=== PATIENT | male | born 1970 | race Caucasian/White ===

== ENCOUNTER 2024-02-28 04:01 | Day surgery (SDC) | payer BC, SELFPAY ==
[2024-02-19 10:01] VITALS: BMI 34.7
--- NOTE | 2024-02-19 10:11 | PC.NURSE ---
Report to the Outpatient Waiting Room, entrance under the green pavilion located off [facility], at time _0900_ on date _[id number]_. Planned Procedure Time: _1100_. Time changes happen often and if your time is changed the preop area will call you the afternoon before. - You and your visitor will be asked to self-screen and do not enter if you have any COVID symptoms. - A mask is optional within the hospital at this time. Patients may have clear liquids (water, carbonated beverages, clear teas, apple juice) until 3 hours prior to surgery with a maximum of 20 ounces. - No food from midnight until time of surgery Take the following medications with a SIP of water the morning of surgery: ___Metoprolol DO NOT STOP ANY OF YOUR OTHER PRESCRIPTION MEDICATIONS PRIOR TO SURGERY ?EXCEPT THE FOLLOWING Medications to discontinue per physician __Benny says he was told by Dr Kim's office to stop Aspirin and Prasugrel 7 days before surgery. Date to take last dose Please no make-up, nail british, hairspray, perfume, deodorant, or body powder the day of surgery. No jewelry (including any body piercings) or valuables the day of surgery, leave them at home. Please take a shower or bath the night before, or the morning of, surgery with an antibacterial soap. Wear comfortable, loose fitting clothing. - Jewelry must be removed prior to entering the operating room. Rings and piercings that are not removed may be cut off. - The hospital will not accept responsibility for valuables. - Please leave all valuables, including medications, at home the day of surgery. If you are going home after surgery, a licensed garbage truck driver must drive you home. - NO public transportation without another adult if you receive anesthesia. - We recommend that an adult stay with you for 24 hours following discharge. - We also recommend that you do not drive, make important decision, drink alcoholic beverages, or take any drugs that were not prescribed by your health care provider for at least 24 hours after your discharge time. Follow any additional instructions given to you from your surgeon. If you or anyone in your household have experienced Covid symptoms in the past week, please notify your surgeon or the nurse liaison at the phone number below for possible testing. Telephone instructions given to _Bill_and asked if any additional questions and then verbalized understanding. Patient advised to call surgeon office or pre surgery nurse liaison [phone] if any additional questions.
[2024-02-28] VITALS (9 sets, daily range): BP systolic 124–172; BP diastolic 85–108; PULSE 57–69; RESP 14–22; TEMP 36.7–36.8; O2SAT 93–98
--- NOTE | 2024-02-28 06:15 | WPDHPUPDATE1 ---
History and Physical Update Update Date/Time: 02/28/24 06:15 History and Physical has been reviewed, including an updated exam of the patient. There are NO changes in the patient's condition. Risks, benefits, and alternatives have been discussed and questions answered. Patient agrees to proceed with procedure.
[2024-02-28] MEDS: LACTATED RINGERS 1,000 ML 30 ML IV CONT ×2 (09:25→10:45)
--- NOTE | 2024-02-28 09:34 | WPDANESEPPF ---
Anes - Initial Pre Proc Eval Procedure: Operation Date: 02/28/24 11:00 Proposed Procedures p Cystoscopy, Holmium Laser Lithotripsy Bladder Stones - Luis Kim MD Date/Time: 02/28/24 09:34 Surgeon: Luis Kim MD Pre Op Diagnosis: Bladder Stones Patient Data Age: 53 Gender: M Height: 1.88 m Weight: 122.7 kg Last Vital Signs Temp 98.2 F 02/28/24 09:09 Pulse 64 02/28/24 09:09 Resp 18 02/28/24 09:09 BP 172/108 H 02/28/24 09:09 Pulse Ox 97 02/28/24 09:09 O2 Del Method Room Air 02/28/24 09:09 Allergies Allergy/AdvReac Type Severity Reaction Status Date / Time No Known Allergies Allergy Verified 02/19/24 09:56 Home Medications Medication Instructions Recorded Confirmed Type amlodipine 10 mg-benazepril 40 mg 1 cap PO DAILY 02/19/24 02/28/24 History capsule aspirin 81 mg chewable tablet 81 mg PO DAILY 02/19/24 02/28/24 History atorvastatin 80 mg tablet 80 mg PO HS 02/19/24 02/28/24 History finasteride 5 mg tablet 5 mg PO HS 02/19/24 02/28/24 History metoprolol succinate 100 mg 100 mg PO DAILY 02/19/24 02/28/24 History tablet,extended release 24 hr prasugrel 10 mg tablet 10 mg PO DAILY 02/19/24 02/28/24 History tamsulosin 0.4 mg capsule 0.4 mg PO HS 02/19/24 02/28/24 History Patient hx anesthesia problems: none Family hx anesthesia problems: none Results Review: All pre-operative results and documents have been reviewed as part of the pre-operative evaluation. [facility] Social History Social History Smoking packs per day: 1 Smoking cigarettes per day: 20.0 Years smoked: 8 Smoking pack-years: 8.00 Smoking status: Current every day smoker Tobacco type: cigarettes Living arrangements: with family Spiritual care concerns: No Anes - Eval Final PreProcedure Day of Procedure 02/28/24 09:34 Patient weight: obese Heart: regular rate and rhythm Lungs: clear to auscultation Airway: Mallampati scale and special considerations (Teeth in poor condition throughout. ) Neurological: alert and oriented Last oral intake: >/= 8 hours ASA classification: III Emergent: no Anesthetic plan: proceed Anesthesia type and monitoring: general LMA and standard monitoring Results Review: All pre-operative results and documents have been reviewed as part of the pre-operative evaluation. Pt s/p PTCA x 1 12/2022, has not seen his river tester since. Has held ASA and AC for this procedure. HTN, hyperlipidemia, IRMA not on CPAP, continues to smoke, smoked at 830 am. Informed Consent: The patient's anesthetic plan and its attendant risks and benefits were discussed with the patient/family/POA. Questions were solicited and answers provided to the satisfaction of the patient/family/POA.
[2024-02-28] MEDS: ceFAZolin 2 GM/D5W 50 ML 2 GM/50 ML BAG IVPB (09:42)
[2024-02-28] MEDS: ceFAZolin 1 GM/NS 50 ML 1 GM/50 ML BAG IVPB (09:42)
[2024-02-28] MEDS: LIDOCAINE HCL 2% GEL UROJET 10 ML PKG MUCOUS MEM (09:49)
--- NOTE | 2024-02-28 10:25 | P.OP_ITS ---
Procedure Note - Detailed Date of Procedure 02/28/24 Pre-op Diagnosis Bladder Stones Post-op Diagnosis Same Procedure Performed Laser lithotripsy, extraction bladder stone Surgeon Luis Kim MD Anesthesia General Description of Procedure The patient is brought to the operative suite where he was prepped and draped in a routine sterile fashion while in the dorsal lithotomy position after the uneventful induction of a general anesthetic. A 21F rigid cystoscope was placed in his bladder. He has no urethral strictures but moderate prostatic hyperplasia. He has a no median lobe enlargement with an estimated prostatic urethral length of approximately 2.5cm. He has single bladder calculus measuring approximately 3.0cm each . Using a 550 micron Reynold laser fiber laser these stones are fractured into smaller particles. The particles are evacuated through a 27 F resectoscope sheath sing both the [employer]ik evacuator and by direct extraction with the loop electrode. There was very minimal mucosal bleeding so I opted not to leave a Metcalf catheter. . The patient was taken to the recovery room having tolerated the procedure well. Drains No Pathology Yes Condition Stable
--- NOTE | 2024-02-28 10:58 | SUR.PHASEI ---
1057: Simple mask removed.
== END 2024-02-28 11:57 | disposition home or self-care (01) ==
PROVIDERS: PCP Emergency Medicine; Visit Provider Urology
PROC: (CPT 52352; principal; 2024-02-28 11:00)
DX: N21.0 Calculus in bladder (principal)
CPT/HCPCS: 52318; 82365; 88300; C1769; J0690; J2250; J2405; J2704; J3010; J7120